=== PATIENT | female | born 1960 | race Caucasian/White ===

== ENCOUNTER 2021-07-30 14:00 | Outpatient (CLI) | payer MEDICAID ==
[2021-07-30 19:54] LABS: BASOPHILS % (AUTO) 0.5 %; EOSINOPHILS # (AUTO) 0.1 10^3/uL (0.0-0.7); EOSINOPHILS % (AUTO) 1.2 %; HCT - HEMATOCRIT 39.6 % (37.0-47.0); HGB - HEMOGLOBIN 12.9 g/dL (12.0-16.0); LYMPHOCYTES # (AUTO) 1.8 10^3/uL (1.5-3.5); LYMPHOCYTES % (AUTO) 32.3 %; MEAN CORPUSCULAR HEMOGLOBIN 29.3 pg (27.0-31.0); MEAN CORPUSCULAR HGB CONC 32.6 g/dL (32.0-36.0); MEAN PLATELET VOLUME 10.4 fL (7.9-10.8); MONOCYTES # (AUTO) 0.8 10^3/uL (0.0-1.0); MONOCYTES % (AUTO) 13.6 %; NEUTROPHILS % (AUTO) 52.2 %; PLT - PLATELET COUNT 251 10^3/uL (130-450); RED CELL DISTRIBUTION WIDTH 13.1 % (12.0-15.0); WHITE BLOOD COUNT 5.7 x10^3/uL (4.8-10.8)
[2021-07-30 20:06] LABS: ALBUMIN 4.2 g/dL (3.2-5.5); ALBUMIN/GLOBULIN RATIO 1.1 (1.0-2.2); BILIRUBIN,TOTAL 0.5 mg/dL (0.2-1.0); CALCIUM 9.2 mg/dL (8.5-10.3); CREATININE 0.8 mg/dL (0.4-1.0); POTASSIUM 3.8 mmol/L (3.5-5.0); TOTAL PROTEIN 7.9 g/dL (6.7-8.2)
[2021-07-30 20:18] LABS: THYROID STIMULATING HORMONE 1.86 uIU/mL (0.34-5.60)
[2021-07-30 20:35] LABS: PT - PROTHROMBIN TIME 10.6 secs (9.9-12.6)
[2021-08-01 11:36] LABS: HEPATITIS C ANTIBODY REACTIVE (NON-REACTIVE)
[2021-08-01 15:05] LABS: HIV AG/AB 4TH GEN NON-REACTIVE (NON-REACTIVE)
[2021-08-02 17:47] LABS: HEPATITIS BE ANTIGEN NONREACTIVE
[2021-08-03 22:46] LABS: HCV RNA QUANT RT PCR 313000 IU/mL (NOT DETECTED)
== END 2021-07-30 14:01 | disposition home or self-care (01) ==
LOC: LAB.S 14:00
PROVIDERS: ATTEND Physician Assistant
DX: K75.9 Inflammatory liver disease, unspecified (principal); Z79.899 Other long term (current) drug therapy
CPT/HCPCS: 36415; 80050; 85610; 86317; 86709; 86803; 87350; 87389; 87902